=== PATIENT | male | born 1995 | race Two or more races ===

== ENCOUNTER 2023-03-04 01:30 | Emergency (ER) | payer SELFPAY ==
[~2023-03-04] VITALS: Ht 177.8 cm; Wt 84.3 kg
[2023-03-04] MEDS ORDERED: LIDOCAINE 1% HCL (LOCAL ANESTH.) INJ 20ML MDV ID ONE (02:00)
[2023-03-04 02:15] VITALS: BP 147/92; PULSE 118; RESP 18; TEMP 98.3; O2SAT 96
== END 2023-03-04 04:32 | disposition home or self-care (01) ==
LOC: ER 01:30
DX: S31.21XA Laceration without foreign body of penis, initial encounter (principal); X58.XXXA Exposure to other specified factors, initial encounter; Y93.89 Activity, other specified; Y92.89 Other specified places as the place of occurrence of the external cause; Y99.8 Other external cause status
CPT/HCPCS: 12001; 99282; J2001